=== PATIENT | male | born 2000 | race Caucasian/White ===

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

== ENCOUNTER 2018-12-12 00:50 | Emergency (ER) | payer OTHER ==
[2018-12-12] MEDS ORDERED: Fentanyl 100 MCG/2 ML VIAL ONE (01:05)
--- NOTE | 2018-12-12 09:55 | RAD ---
LEFT SHOULDER 3 VIEWS: Date: 12/12/18 INDICATION: Status post reduction. COMPARISON: Prior exam dated 12/12/18 at 0111 hours. FINDINGS: Since the comparison examination, the glenohumeral dislocation has been reduced. No acute fracture is evident. Visualized left lung is clear. IMPRESSION: Interval reduction of the anterior inferior left glenohumeral dislocation. POS: [facility]
--- NOTE | 2018-12-12 10:07 | RAD ---
2 VIEWS LEFT SHOULDER: Date: 12/12/18 INDICATION: Shoulder pain, dislocation. IMPRESSION: The left glenohumeral joint is dislocated inferiorly. The visualized left lung is clear. No acute fra cture is evident. IMPRESSION: Anterior inferior dislocation of left glenohumeral joint. POS: [facility]
== END 2018-12-12 02:36 | disposition home or self-care (01) ==
LOC: ERS 00:50
DX: S42.202A Unspecified fracture of upper end of left humerus, initial encounter for closed fracture (principal); S43.015A Anterior dislocation of left humerus, initial encounter; S43.035A Inferior dislocation of left humerus, initial encounter; W19.XXXA Unspecified fall, initial encounter
CPT/HCPCS: 23650; 96374; J3010

== ENCOUNTER 2021-02-05 22:53 | Emergency (ER) | payer OTHER ==
[2021-02-06] MEDS ORDERED: Acetaminophen 500 MG TAB ONE (00:39)
[2021-02-06] MEDS ORDERED: diphenhydrAMINE 25 MG CAP ONE (00:39)
== END 2021-02-06 00:45 | disposition home or self-care (01) ==
LOC: ERS 22:53
DX: L50.0 Allergic urticaria (principal)
CPT/HCPCS: 99283; Q0163